=== PATIENT | female | born 1990 | race Caucasian/White ===

== ENCOUNTER 2017-12-13 16:35 | Emergency (ER) | payer OTHER, SELFPAY ==
[2017-12-13 16:56] VITALS: BP 119/75; PULSE 60; RESP 16; TEMP 36.9; O2SAT 100; BMI 24.2
--- NOTE | 2017-12-13 17:30 | ED.RECABL ---
HPI - Recheck/Abnormal Lab/Rx General Chief Complaint: Recheck/Abnormal Lab/Rx Stated Complaint: THINKS HAVING CRAMPING LOWER BACK PAIN NA Time Seen by Provider: 12/13/17 17:17 Source: patient Mode of arrival: ambulatory Limitations: no limitations History of Present Illness HPI narrative: Patient is a 27-year-old female who presents with negative test at home. She states that she is 1 week late on her menstrual. She is never 3 8 id she has 2 he will pregnancies prior no problems or complications with those. She is having some abdominal mild cramping. No vaginal bleeding. No pain. She was reading online and decided to come to the ED. Review of Systems Review of Systems GENERAL: Denies chills,fever HEENT: Denies throat pain RESPIRATORY: Denies dyspnea, cough, wheezing CARDIOVASCULAR: Denies chest pain, palpitations GASTROINTESTINAL: Denies nausea, vomiting MUSCULOSKELETAL: Denies extremity pain, injury SKIN: No rash, no laceration, no pruritus NEUROLOGIC: Denies weakness, dizziness, headache, numbness 8 point review of systems is negative except for those stated above and HPI Genitourinary Reports amenorrhea, Denies dysuria, Denies pelvic pain, Denies flank pain, Denies urinary incontinence, Denies urinary hesitancy, Denies urinary urgency and Denies vaginal discharge Exam Initial Vital Signs Initial Vital Signs: Vital Signs Temperature 98.4 F 12/13/17 16:56 Pulse Rate 60 12/13/17 16:56 Respiratory Rate 16 12/13/17 16:56 Blood Pressure 119/75 12/13/17 16:56 Pulse Oximetry 100 12/13/17 16:56 GENERAL: Well-appearing, well-nourished and in no acute distress. CARDIOVASCULAR: peripheral pulses in tact, cap refill <2 sec RESPIRATORY: No respiratory distress, speaks in full sentences without difficulty ABDOMEN: Soft, nontender, no guarding or rebound EXTREMITIES: Normal range of motion, no clubbing or edema. Neurovascularly intact NEUROLOGICAL: Cranial nerves II through XII grossly intact. Normal gait and speech. SKIN: Warm, dry, no petechiae, no rashes or lesions. Course Vital Signs - 8 hr 12/13/17 16:56 Temperature 98.4 F Pulse Rate 60 Respiratory Rate 16 Blood Pressure 119/75 Pulse Oximetry 100 MDM - Recheck/Abnormal Lab/Rx Lab Data Attestation: I reviewed the patient's lab results. POC preg negative POC urine dip= Negative MDM Narrative Medical decision making narrative: The patient has a soft abdomen. Urine test in the ED is negative. They recommended that if she still has not had her menstrual cycle next week and her retake the test. She may be too early yet. At this time no indication for serum HCG Discharge Plan Departure Patient Disposition: Home, Self-Care Clinical Impression: No problem, feared complaint unfounded Discharge Date/Time: 12/13/17 17:44 Interventions: ED Discharge Assessment Last Done: 12/13/17 17:42 Instructions: DI for -- Discomforts and Remedies Activity Restrictions/Additional Instructions: *You have been diagnosed with test is negative at this time *What to do: Recommend waiting 1 week and we taking urine test is still no period *Follow up with your primary care provider in 2-3 days *Return to ER if you should have excessive vaginal bleeding going through more than 1 pad an hour, increase or severe abdominal pain or cramps or any new, worsening or concerning symptoms
== END 2017-12-13 17:44 | disposition home or self-care (01) ==
PROVIDERS: Emergency Provider Emergency Medicine
DX: M54.9 Dorsalgia, unspecified (principal)
CPT/HCPCS: 81003; 81025; 99282